=== PATIENT | male | born 1955 | race Caucasian/White ===

== ENCOUNTER → 2016-10-04 | Outpatient (CLI) | payer BC ==
[~2016-10-04] MED LIST: ALEVE220 MG PO; ANORO ELLIPTA1 EACH IH; ASPIR-TRIN325 M1 PO; COUMADIN2 MG PO; DURAGESIC25 MCG TD; Flonase BOTH NARES; GLUCOPHAGE1000 MG PO; GLUCOPHAGE500 MG PO; GLYBURID-METFO1 EAC1 PO; GLYBURIDE1.25 MG PO; Glucosamine/Chondroi PO; HYDROCHLOROTHIA25 MG PO; Hydrodiuril,Oretic,E PO; LOTREL 10/21 CAPSULE PO; LOVENOX150 MG/1 M SC; NASACORT10.8 ML BOTH NARES; ROXICODONE5 MG PO; TOPROL XL100 MG PO; WYGESIC,DARV1 TABLET PO; ZYRTEC10 M3 PO; Zocor PO
== END | disposition home or self-care (01) ==
LOC: NUC 10:44
DX: C80.1 Malignant (primary) neoplasm, unspecified (principal); C79.9 Secondary malignant neoplasm of unspecified site
CPT/HCPCS: 78306; A9503

== ENCOUNTER → 2016-10-13 | Outpatient (CLI) | payer BC ==
[2016-10-13 09:53] LABS: INTER. NORMALIZED RATIO 1.2; PROTHROMBIN TIME 12.3 (9.2-11.2); PTT 33.4 (25-32)
== END | disposition home or self-care (01) ==
LOC: OPR 08:50 → EDSTATUS 09:00
PROVIDERS: Internal Medicine Hematology & Oncology
PROC: 0FB03ZX Excision of Liver, Percutaneous Approach, Diagnostic (ICD-10-PCS; principal; 2016-10-13)
DX: C78.7 Secondary malignant neoplasm of liver and intrahepatic bile duct (principal); C18.9 Malignant neoplasm of colon, unspecified
CPT/HCPCS: 77012; 85610; 85730; 88307; 88341 TC; 88342 TC; J3010

== ENCOUNTER 2016-11-13 09:32 | Inpatient (IN) | payer BC ==
[~2016-11-13] VITALS: Ht 185.4 cm; Wt 107.0 kg
[~2016-11-13 09:32] MED LIST changes: +ATIVAN0.5 MG PO; +COMPAZINE10 MG PO; +LIPITOR40 MG PO; +OMEPRAZOLE40 M1 PO; +ZOFRAN8 MG PO
[2016-11-13 10:00] LABS: HEMATOCRIT 34.7 % (38.0-50.0); MCH 27.5 PG (29.0-34.0); MCHC 33.4 G/DL (30.0-36.0); MCV 82.2 FL (86-99); RBC DIS.WIDTH-CV 18.3 % (11.8-14.6); RBC DIS.WIDTH-SD 52.6 % (39-53); RED BLOOD COUNT 4.22 M/uL (4.00-5.50); WHITE BLOOD COUNT 3.8 K/uL (4.1-10.2)
[2016-11-13 10:03] LABS: BASOPHIL COUNT 0.1 K/uL (0-0.1); EOSINOPHIL (%) 0.8 % (0-5); IMMATURE GRANULOCYTE (%) 1.3 % (0.0-0.7); IMMATURE GRANULOCYTE COUNT 0.5 K/uL; LYMPHOCYTE COUNT 1.3 K/uL (1.0-2.8); MONOCYTE (%) 26.2 % (3-12); NEUTROPHIL COUNT 1.3 K/uL (1.8-6.4)
[2016-11-13 10:11] LABS: INTER. NORMALIZED RATIO 1.5; PROTHROMBIN TIME 15.4 (9.2-11.2); PTT 43.4 (25-32)
[2016-11-13 10:18] LABS: CHLORIDE 107 mEq/L (99-109); POTASSIUM 3.9 mEq/L (3.7-5.4); SODIUM 138 mEq/L (136-147)
[2016-11-13 10:20] LABS: GLUCOSE 203 mg/dL (70-99)
[2016-11-13 10:21] LABS: ANION GAP 18 MEQ/L (2-14)
[2016-11-13 10:23] LABS: TROP-I INTERPRETATION NEGATIVE; TROPONIN-I < 0.01 ng/mL (0.0-0.30)
[2016-11-13 10:23] LABS: GFR ESTIMATE (CALCULATED) 54 mL/min/
[2016-11-13 10:24] LABS: UREA NITROGEN (BUN) 26 mg/dL (9-23)
[2016-11-13 11:01] LABS: ABS NEUTROPHIL COUNT 1.32; ANISOCYTOSIS 1+; MACROCYTES OCC; MEAN PLAT.VOLUME 11.4 uM^3 (9.0-12.4); MICROCYTOSIS OCC; PLAT.SUFFICIENCY ADEQUATE
[2016-11-13 11:08] LABS: PLATELET COUNT UNABLE TO REPORT K/uL (156-360)
[2016-11-13 11:13] LABS: BASE EXCESS -10.4 mEq/L (-3 to +3); BICARBONATE 14.4 mEq/L (22-26); CARBOXY HGB 4.1 % (0-5); METHEMOGLOBIN 1.2 % (0-1.5); PCO2 28 mm Hg (35-45); PO2 66 mm Hg (80-100); pH 7.32 (7.35-7.45)
[2016-11-13 11:14] LABS: COMMENTS - BLOOD GASES A+C+; DEVICE NC; O2 FLOW 5 L/MIN; SITE RR; TOTAL RESP RATE 23 resp/min
[2016-11-13] MEDS ORDERED: MULTAQ400 MG PO (12:05)
[2016-11-13] MEDS ORDERED: GLUCOSAMINE-CH1 EA15 PO (12:06)
[2016-11-13] MEDS ORDERED: XYLOCAINE VISC100 ML MM (12:07)
[2016-11-13 17:08] LABS: POINT-OF-CARE METER ID UU14100415
[2016-11-13 17:25] VITALS: BP 117/57
[2016-11-13 18:30] VITALS: BP 111/92
[2016-11-13 19:50] VITALS: BP 111/92
[2016-11-13 20:32] LABS: ANION GAP 15 MEQ/L (2-14); CHLORIDE 109 MEQ/L (99-109); GFR ESTIMATE (CALCULATED) > 59 mL/min/; GLUCOSE 178 mg/dL (70-99); POTASSIUM 3.7 MEQ/L (3.7-5.4); SAMPLE HEMOLYSIS CHECK 0; SAMPLE ICTERIC CHECK 0; SAMPLE LIPEMIA CHECK 0; SODIUM 137 MEQ/L (136-147); UREA NITROGEN (BUN) 23 mg/dL (9-23)
[2016-11-14] VITALS (17 sets, daily range): BP systolic 76–139; BP diastolic 37–70
[2016-11-14 00:09] LABS: POINT-OF-CARE METER ID UU14188577
[2016-11-14 06:43] LABS: POINT-OF-CARE METER ID UU14149397
[2016-11-14 08:43] LABS: ALKALINE PHOSPHATASE 368 IU/L (3-129); ANION GAP 12 MEQ/L (2-14); CHLORIDE 111 MEQ/L (99-109); GFR ESTIMATE (CALCULATED) > 59 mL/min/; GLUCOSE 135 mg/dL (70-99); POTASSIUM 3.6 MEQ/L (3.7-5.4); SAMPLE HEMOLYSIS CHECK 0; SAMPLE ICTERIC CHECK 0; SAMPLE LIPEMIA CHECK 0; SODIUM 139 MEQ/L (136-147); UREA NITROGEN (BUN) 19 mg/dL (9-23)
[2016-11-14 08:56] LABS: BASOPHIL COUNT 0.1 K/uL (0-0.1); IMMATURE GRANULOCYTE (%) 2.7 % (0.0-0.7); IMMATURE GRANULOCYTE COUNT 0.1 K/uL; LYMPHOCYTE COUNT 0.5 K/uL (1.0-2.8); MONOCYTE (%) 31.4 % (3-12); MONOCYTE COUNT 0.9 K/uL (0-0.8); NEUTROPHIL (%) 45.1 % (45-76); NEUTROPHIL COUNT 1.4 K/uL (1.8-6.4)
[2016-11-14 09:11] LABS: HEMATOCRIT 31.3 % (38.0-50.0); MCH 25.9 PG (29.0-34.0); MCHC 31.6 G/DL (30.0-36.0); MCV 81.9 FL (86-99); RBC DIS.WIDTH-CV 18.2 % (11.8-14.6); RBC DIS.WIDTH-SD 53.6 % (39-53); RED BLOOD COUNT 3.82 M/uL (4.00-5.50); USER ID BLP
[2016-11-14 14:17] LABS: CARBOXY HGB 1.5 % (0-5); COMMENTS - BLOOD GASES A+C+; DEVICE NRBM; METHEMOGLOBIN 1.4 % (0-1.5); O2 FLOW 15 L/MIN; PCO2 88 mm Hg (35-45); PO2 152 mm Hg (80-100); SITE RR; pH < 6.91 (7.35-7.45)
[2016-11-14 15:27] LABS: ANION GAP 12 MEQ/L (2-14); CHLORIDE 112 MEQ/L (99-109); HEMATOCRIT 30.1 % (38.0-50.0); MAGNESIUM 2.1 mg/dl (1.3-2.7); MCH 26.1 PG (29.0-34.0); MCHC 30.9 G/DL (30.0-36.0); MCV 84.3 FL (86-99); POTASSIUM 4.1 MEQ/L (3.7-5.4); RBC DIS.WIDTH-CV 18.6 % (11.8-14.6); RBC DIS.WIDTH-SD 57.2 % (39-53); RED BLOOD COUNT 3.57 M/uL (4.00-5.50); SAMPLE HEMOLYSIS CHECK 0; SAMPLE ICTERIC CHECK 0; SAMPLE LIPEMIA CHECK 0; SODIUM 142 MEQ/L (136-147); WHITE BLOOD COUNT 5.8 K/uL (4.1-10.2)
[2016-11-14 15:28] LABS: DELETE MACHINE DIFF? YES
[2016-11-14 15:32] LABS: ALKALINE PHOSPHATASE 351 IU/L (3-129); GFR ESTIMATE (CALCULATED) > 59 mL/min/; GLUCOSE 148 mg/dL (70-99); INTER. NORMALIZED RATIO 1.6; PROTHROMBIN TIME 16.8 (9.2-11.2); PTT 43.9 (25-32); UREA NITROGEN (BUN) 20 mg/dL (9-23)
[2016-11-14 15:35] LABS: METH RESISTANT S AUREUS PCR NEGATIVE (NEGATIVE)
[2016-11-14 15:36] LABS: TROP-I INTERPRETATION NEGATIVE; TROPONIN-I 0.06 ng/mL (0.0-0.30)
[2016-11-14 15:36] LABS: PROBE CHECK PASS; SPECIMEN PROCESSING CONTROL PASS
[2016-11-14 15:45] LABS: BASE EXCESS -11.9 mEq/L (-3 to +3); BICARBONATE 16.4 mEq/L (22-26); CARBOXY HGB 1.3 % (0-5); METHEMOGLOBIN 1.7 % (0-1.5); PO2 142 mm Hg (80-100)
[2016-11-14 15:46] LABS: DEVICE VENT; FI02 80 %; MECHANICAL RATE 16 resp/min; MODE AC; PCO2 47 mm Hg (35-45); PEEP 5 CM/H20; SITE RR; TIDAL VOLUME 500 ML; TOTAL RESP RATE 23 resp/min
[2016-11-14 15:47] LABS: pH 7.15 (7.35-7.45)
[2016-11-14 16:53] LABS: HEMATOLOGY COMMENT 1 SMEAR COMPATIBLE; MEAN PLAT.VOLUME 10.6 uM^3 (9.0-12.4); PLAT.SUFFICIENCY ADEQUATE; USER ID SS
[2016-11-14 16:54] LABS: POINT-OF-CARE METER ID UU13113803
[2016-11-14 16:54] LABS: PLATELET COUNT 202 K/uL (156-360)
[2016-11-14 20:45] LABS: INFLUENZA A VIRAL ANTIGEN NEGATIVE; INFLUENZA B VIRAL ANTIGEN NEGATIVE
[2016-11-14 20:58] LABS: BASE EXCESS -7.6 mEq/L (-3 to +3); BICARBONATE 18.2 mEq/L (22-26); CARBOXY HGB 1.3 % (0-5); PCO2 37 mm Hg (35-45); PO2 88 mm Hg (80-100)
[2016-11-14 20:59] LABS: COMMENTS - BLOOD GASES C+; DEVICE VENT; FI02 80 %; MECHANICAL RATE 16 resp/min; MODE AC; PEEP 5 CM/H20; SITE RR; TIDAL VOLUME 500 ML; TOTAL RESP RATE 17 resp/min
[2016-11-14 23:23] LABS: TROP-I INTERPRETATION NEGATIVE; TROPONIN-I 0.08 ng/mL (0.0-0.30)
[2016-11-15] VITALS (26 sets, daily range): BP systolic 75–124; BP diastolic 32–60
[2016-11-15 00:05] LABS: POINT-OF-CARE METER ID UU13113803
[2016-11-15 05:37] LABS: VANCOMYCIN, TROUGH 18.9 MCG/ML (10-20)
[2016-11-15 06:13] LABS: HEMATOCRIT 25.5 % (38.0-50.0); MCH 26.7 PG (29.0-34.0); MCHC 32.2 G/DL (30.0-36.0); MCV 83.1 FL (86-99); PLATELET COUNT 142 K/uL (156-360); RBC DIS.WIDTH-CV 18.5 % (11.8-14.6); RBC DIS.WIDTH-SD 55.9 % (39-53); RED BLOOD COUNT 3.07 M/uL (4.00-5.50); WHITE BLOOD COUNT 4.4 K/uL (4.1-10.2)
[2016-11-15 06:54] LABS: ALKALINE PHOSPHATASE 273 IU/L (3-129); ANION GAP 10 MEQ/L (2-14); CHLORIDE 111 MEQ/L (99-109); GFR ESTIMATE (CALCULATED) 50 mL/min/; GLUCOSE 154 mg/dL (70-99); POTASSIUM 3.8 MEQ/L (3.7-5.4); SAMPLE HEMOLYSIS CHECK 0; SAMPLE ICTERIC CHECK 0; SAMPLE LIPEMIA CHECK 0; SODIUM 140 MEQ/L (136-147); TOTAL BILIRUBIN 1.2 MG/DL (0.0-1.0); UREA NITROGEN (BUN) 26 mg/dL (9-23)
[2016-11-15 10:16] LABS: BASE EXCESS -5.5 mEq/L (-3 to +3); BICARBONATE 18.9 mEq/L (22-26); CARBOXY HGB 1.4 % (0-5); COMMENTS - BLOOD GASES NA C+; DEVICE VENT; FI02 70 %; MECHANICAL RATE 14 resp/min; METHEMOGLOBIN 1.5 % (0-1.5); MODE PC; PCO2 32 mm Hg (35-45); PO2 74 mm Hg (80-100); SITE RR; TOTAL RESP RATE 21 resp/min; pH 7.38 (7.35-7.45)
[2016-11-15 10:17] LABS: INSPIRATORY/EXPIRATORY RATIO 0.8 RATIO; PEEP 10 CM/H20; PRESSURE CONTROL VENTILATION 10 CM H20
[2016-11-15 12:56] LABS: POINT-OF-CARE METER ID UU14174217
[2016-11-15 18:21] LABS: POINT-OF-CARE METER ID UU13113803
[2016-11-15 23:41] LABS: POINT-OF-CARE METER ID UU13113803
[2016-11-16] VITALS (24 sets, daily range): BP systolic 92–146; BP diastolic 43–71
[2016-11-16 03:31] LABS: CHLORIDE 112 mEq/L (99-109); MAGNESIUM 1.9 mg/dL (1.3-2.7); POTASSIUM 3.8 mEq/L (3.7-5.4); SODIUM 141 mEq/L (136-147)
[2016-11-16 03:33] LABS: GLUCOSE 154 mg/dL (70-99)
[2016-11-16 03:34] LABS: ANION GAP 12 MEQ/L (2-14)
[2016-11-16 03:36] LABS: GFR ESTIMATE (CALCULATED) 38 mL/min/
[2016-11-16 03:37] LABS: UREA NITROGEN (BUN) 32 mg/dL (9-23)
[2016-11-16 05:04] LABS: POINT-OF-CARE METER ID UU14162636
[2016-11-16 06:50] LABS: ANISOCYTOSIS 1+; HEMATOCRIT 25.7 % (38.0-50.0); MACROCYTES 1+; MCH 27.2 PG (29.0-34.0); MCHC 33.1 G/DL (30.0-36.0); MCV 82.4 FL (86-99); PLAT.SUFFICIENCY ADEQUATE; PLATELET COUNT 173 K/uL (156-360); POLYCHROMASIA OCC; RBC DIS.WIDTH-CV 18.6 % (11.8-14.6); RBC DIS.WIDTH-SD 54.8 % (39-53); RED BLOOD COUNT 3.12 M/uL (4.00-5.50); SMUDGE CELLS 0; USER ID STC
[2016-11-16 06:51] LABS: WHITE BLOOD COUNT 8.3 K/uL (4.1-10.2)
[2016-11-16 06:52] LABS: DELETE MACHINE DIFF? YES
[2016-11-16 12:00] LABS: POINT-OF-CARE METER ID UU13113731
[2016-11-16 16:07] LABS: POINT-OF-CARE METER ID UU14162636
[2016-11-16 23:40] LABS: POINT-OF-CARE METER ID UU14162636
[2016-11-17] VITALS (25 sets, daily range): BP systolic 97–155; BP diastolic 48–72
[2016-11-17 05:33] LABS: POINT-OF-CARE METER ID UU13113803
[2016-11-17 05:52] LABS: ANION GAP 15 MEQ/L (2-14); CHLORIDE 106 MEQ/L (99-109); GFR ESTIMATE (CALCULATED) 32 mL/min/; GLUCOSE 224 mg/dL (70-99); SAMPLE HEMOLYSIS CHECK 1; SAMPLE ICTERIC CHECK 0; SAMPLE LIPEMIA CHECK 1; SODIUM 138 MEQ/L (136-147); UREA NITROGEN (BUN) 42 mg/dL (9-23)
[2016-11-17 05:53] LABS: MAGNESIUM 2.6 mg/dl (1.3-2.7); POTASSIUM 3.9 MEQ/L (3.7-5.4)
[2016-11-17 06:57] LABS: ABS NEUTROPHIL COUNT 10.72; ANISOCYTOSIS 1+; BURR CELLS 1+; EOSINOPHIL (%) 0.1 % (0-5); HEMATOCRIT 28.6 % (38.0-50.0); IMMATURE GRANULOCYTE (%) 7.4 % (0.0-0.7); LYMPHOCYTE COUNT 1.1 K/uL (1.0-2.8); MACROCYTES 1+; MCHC 31.5 G/DL (30.0-36.0); MCV 82.7 FL (86-99); MONOCYTE (%) 10.8 % (3-12); MONOCYTE COUNT 1.4 K/uL (0-0.8); NEUTROPHIL (%) 73.1 % (45-76); NEUTROPHIL COUNT 9.6 K/uL (1.8-6.4); PLAT.SUFFICIENCY ADEQUATE; PLATELET COUNT UNABLE TO REPORT K/uL (156-360); RBC DIS.WIDTH-CV 18.8 % (11.8-14.6); RBC DIS.WIDTH-SD 55.6 % (39-53); RED BLOOD COUNT 3.46 M/uL (4.00-5.50); WHITE BLOOD COUNT 13.1 K/uL (4.1-10.2)
[2016-11-17 12:01] LABS: POINT-OF-CARE METER ID UU13113731
[2016-11-17 17:50] LABS: POINT-OF-CARE METER ID UU13113731
[2016-11-18] VITALS (24 sets, daily range): BP systolic 94–155; BP diastolic 43–75
[2016-11-18 05:19] LABS: POINT-OF-CARE METER ID UU13113748
[2016-11-18 06:10] LABS: ANION GAP 16 MEQ/L (2-14); CHLORIDE 106 MEQ/L (99-109); GFR ESTIMATE (CALCULATED) 32 mL/min/; GLUCOSE 221 mg/dL (70-99); MAGNESIUM 2.4 mg/dl (1.3-2.7); POTASSIUM 3.6 MEQ/L (3.7-5.4); SAMPLE HEMOLYSIS CHECK 0; SAMPLE ICTERIC CHECK 0; SAMPLE LIPEMIA CHECK 1; SODIUM 140 MEQ/L (136-147); UREA NITROGEN (BUN) 50 mg/dL (9-23)
[2016-11-18 06:26] LABS: HEMATOCRIT 28.5 % (38.0-50.0); MCH 26.1 PG (29.0-34.0); MCHC 31.9 G/DL (30.0-36.0); MCV 81.9 FL (86-99); RBC DIS.WIDTH-CV 18.8 % (11.8-14.6); RED BLOOD COUNT 3.48 M/uL (4.00-5.50)
[2016-11-18 06:37] LABS: WHITE BLOOD COUNT 17.8 K/uL (4.1-10.2)
[2016-11-18 07:17] LABS: ABS NEUTROPHIL COUNT 15.85; ANISOCYTOSIS 1+; BURR CELLS 1+; MACROCYTES OCC; MEAN PLAT.VOLUME 11.3 uM^3 (9.0-12.4); NRBC (%) 2.3 /100 WBC (0-0); PLAT.SUFFICIENCY ADEQUATE; PLATELET CLUMPS PRESENT; POLYCHROMASIA RARE; USER ID STC
[2016-11-18 07:29] LABS: DELETE MACHINE DIFF? YES
[2016-11-18 12:58] LABS: POINT-OF-CARE METER ID UU14174217
[2016-11-18 17:49] LABS: POINT-OF-CARE METER ID UU13113748
[2016-11-19] VITALS (19 sets, daily range): BP systolic 95–160; BP diastolic 40–80
[2016-11-19 00:22] LABS: POINT-OF-CARE METER ID UU14162636
[2016-11-19 01:41] LABS: C DIFF TOXIN NEGATIVE (NEGATIVE)
[2016-11-19 01:44] LABS: PROBE CHECK PASS; SPECIMEN PROCESSING CONTROL PASS
[2016-11-19 05:56] LABS: MEAN PLAT.VOLUME 11.4 uM^3 (9.0-12.4)
[2016-11-19 06:18] LABS: ANION GAP 16 MEQ/L (2-14); CHLORIDE 104 MEQ/L (99-109); GFR ESTIMATE (CALCULATED) 32 mL/min/; GLUCOSE 201 mg/dL (70-99); MAGNESIUM 2.3 mg/dl (1.3-2.7); POTASSIUM 3.2 MEQ/L (3.7-5.4); SAMPLE HEMOLYSIS CHECK 0; SAMPLE ICTERIC CHECK 0; SAMPLE LIPEMIA CHECK 1; SODIUM 142 MEQ/L (136-147); UREA NITROGEN (BUN) 55 mg/dL (9-23)
[2016-11-19 06:26] LABS: POINT-OF-CARE METER ID UU13113803
[2016-11-19 06:50] LABS: HEMATOCRIT 28.2 % (38.0-50.0); MCH 27.8 PG (29.0-34.0); MCHC 33.3 G/DL (30.0-36.0); MCV 83.4 FL (86-99); RBC DIS.WIDTH-CV 19.3 % (11.8-14.6); RED BLOOD COUNT 3.38 M/uL (4.00-5.50)
[2016-11-19 06:52] LABS: PLATELET COUNT 194 K/uL (156-360)
[2016-11-19 07:22] LABS: ABS NEUTROPHIL COUNT 17.96; ANISOCYTOSIS 1+; BURR CELLS OCC; EOSINOPHIL (%) 0.6 % (0-5); EOSINOPHIL COUNT 0.1 K/uL (0-0.3); IMMATURE GRANULOCYTE (%) 3.5 % (0.0-0.7); IMMATURE GRANULOCYTE COUNT 0.7 K/uL; LYMPHOCYTE COUNT 1.7 K/uL (1.0-2.8); MACROCYTES OCC; MONOCYTE COUNT 1.6 K/uL (0-0.8); NEUTROPHIL (%) 79.2 % (45-76); NEUTROPHIL COUNT 15.8 K/uL (1.8-6.4); PLAT.SUFFICIENCY ADEQUATE; POLYCHROMASIA OCC; SPHEROCYTES OCC; USER ID MCB
[2016-11-19 09:34] LABS: BASE EXCESS -1.7 mEq/L (-3 to +3); CARBOXY HGB 1.6 % (0-5); METHEMOGLOBIN 1.4 % (0-1.5); PO2 78 mm Hg (80-100); pH 7.39 (7.35-7.45)
[2016-11-19 09:35] LABS: COMMENTS - BLOOD GASES NA C+; DEVICE VENT; FI02 80 %; INSPIRATION TIME 0.8 seconds; MECHANICAL RATE 14 resp/min; MODE AC/PC; PCO2 38 mm Hg (35-45); PEEP 12.5 CM/H20; PRESSURE CONTROL VENTILATION 15 CM H20; SITE RR; TOTAL RESP RATE 22 resp/min
[2016-11-19 11:28] LABS: POINT-OF-CARE METER ID UU13113803
[2016-11-19 17:32] LABS: POINT-OF-CARE METER ID UU14162636
[2016-11-20] VITALS (22 sets, daily range): BP systolic 90–149; BP diastolic 47–74
[2016-11-20 00:13] LABS: POINT-OF-CARE METER ID UU14162636
[2016-11-20 02:14] LABS: BASE EXCESS -1.6 mEq/L (-3 to +3); BICARBONATE 22.8 mEq/L (22-26); CARBOXY HGB 1.9 % (0-5); COMMENTS - BLOOD GASES C+; DEVICE 840; FI02 100 %; INSPIRATION TIME 0.8 seconds; MECHANICAL RATE 14 resp/min; METHEMOGLOBIN 2.1 % (0-1.5); MODE AC/PC; PCO2 36 mm Hg (35-45); PEEP 12.5 CM/H20; PO2 59 mm Hg (80-100); PRESSURE CONTROL VENTILATION 15 CM H20; SITE RR; TOTAL RESP RATE 27 resp/min; pH 7.41 (7.35-7.45)
[2016-11-20 02:33] LABS: HEMATOCRIT 28.3 % (38.0-50.0); MCH 27.2 PG (29.0-34.0); MCHC 32.2 G/DL (30.0-36.0); MCV 84.5 FL (86-99); MEAN PLAT.VOLUME 11.1 uM^3 (9.0-12.4); PLATELET COUNT 165 K/uL (156-360); RBC DIS.WIDTH-CV 19.8 % (11.8-14.6); RBC DIS.WIDTH-SD 53.1 % (39-53); RED BLOOD COUNT 3.35 M/uL (4.00-5.50); WHITE BLOOD COUNT 23.2 K/uL (4.1-10.2)
[2016-11-20 02:43] LABS: CHLORIDE 111 mEq/L (99-109); POTASSIUM 3.6 mEq/L (3.7-5.4); SODIUM 147 mEq/L (136-147)
[2016-11-20 02:45] LABS: GLUCOSE 205 mg/dL (70-99)
[2016-11-20 02:47] LABS: ANION GAP 18 MEQ/L (2-14)
[2016-11-20 02:49] LABS: GFR ESTIMATE (CALCULATED) 32 mL/min/
[2016-11-20 02:50] LABS: UREA NITROGEN (BUN) 57 mg/dL (9-23)
[2016-11-20 03:30] LABS: EOSINOPHIL (%) 0.7 % (0-5); EOSINOPHIL COUNT 0.2 K/uL (0-0.3); HEMATOLOGY COMMENT 1 SMEAR COMPATIBLE; IMMATURE GRANULOCYTE (%) 2.2 % (0.0-0.7); IMMATURE GRANULOCYTE COUNT 0.5 K/uL; LYMPHOCYTE COUNT 1.2 K/uL (1.0-2.8); MONOCYTE COUNT 1.7 K/uL (0-0.8); NEUTROPHIL (%) 83.4 % (45-76); NRBC (%) 1.8 /100 WBC (0-0); PLAT.SUFFICIENCY ADEQUATE
[2016-11-20 03:50] LABS: TOTAL BILIRUBIN 0.9 mg/dL (0.0-1.0)
[2016-11-20 03:51] LABS: ALKALINE PHOSPHATASE 416 IU/L (3-129)
[2016-11-20 03:53] LABS: DIRECT BILIRUBIN 0.6 mg/dL (0.0-0.3)
[2016-11-20 06:19] LABS: POINT-OF-CARE METER ID UU13113803
[2016-11-20 12:54] LABS: ANION GAP 14 MEQ/L (2-14); CHLORIDE 109 MEQ/L (99-109); GFR ESTIMATE (CALCULATED) 34 mL/min/; GLUCOSE 243 mg/dL (70-99); SAMPLE HEMOLYSIS CHECK 0; SAMPLE ICTERIC CHECK 0; SAMPLE LIPEMIA CHECK 1; SODIUM 146 MEQ/L (136-147); UREA NITROGEN (BUN) 59 mg/dL (9-23)
[2016-11-20 12:55] LABS: POTASSIUM 4.6 MEQ/L (3.7-5.4)
[2016-11-20 17:12] LABS: POINT-OF-CARE METER ID UU14174217
[2016-11-21] VITALS (15 sets, daily range): BP systolic 96–150; BP diastolic 48–75
[2016-11-21 00:34] LABS: POINT-OF-CARE METER ID UU14174217
[2016-11-21 04:42] LABS: HEMATOCRIT 27.1 % (38.0-50.0); MCH 27.7 PG (29.0-34.0); MCHC 31.7 G/DL (30.0-36.0); MCV 87.1 FL (86-99); MEAN PLAT.VOLUME 12.2 uM^3 (9.0-12.4); PLATELET COUNT 159 K/uL (156-360); RBC DIS.WIDTH-CV 20.7 % (11.8-14.6); RBC DIS.WIDTH-SD 55.4 % (39-53); RED BLOOD COUNT 3.11 M/uL (4.00-5.50); WHITE BLOOD COUNT 22.1 K/uL (4.1-10.2)
[2016-11-21 04:50] LABS: CHLORIDE 110 mEq/L (99-109); POTASSIUM 5.2 mEq/L (3.7-5.4); SODIUM 147 mEq/L (136-147)
[2016-11-21 04:51] LABS: MAGNESIUM 2.2 mg/dL (1.3-2.7)
[2016-11-21 04:54] LABS: ANION GAP 14 MEQ/L (2-14)
[2016-11-21 04:56] LABS: GFR ESTIMATE (CALCULATED) 31 mL/min/
[2016-11-21 04:57] LABS: UREA NITROGEN (BUN) 68 mg/dL (9-23)
[2016-11-21 04:58] LABS: GLUCOSE 377 mg/dL (70-99)
[2016-11-21 05:42] LABS: ANISOCYTOSIS 2+; HEMATOLOGY COMMENT 1 REV; MACROCYTES 1+; MICROCYTOSIS 1+; OVALOCYTES FEW; PLAT.SUFFICIENCY ADEQUATE; SPHEROCYTES FEW
[2016-11-21 05:43] LABS: EOSINOPHIL (%) 0 % (0-5); IMMATURE GRANULOCYTE COUNT 2.1 K/uL; MONOCYTE (%) 2.6 % (3-12); MONOCYTE COUNT 0.6 K/uL (0-0.8); NEUTROPHIL (%) 91.6 % (45-76); NEUTROPHIL COUNT 20.2 K/uL (1.8-6.4)
[2016-11-21 08:48] LABS: BICARBONATE 24.3 mEq/L (22-26); CARBOXY HGB 1.6 % (0-5); COMMENTS - BLOOD GASES +C; DEVICE PB840; FI02 60 %; MECHANICAL RATE 25 resp/min; METHEMOGLOBIN 1.9 % (0-1.5); MODE ACPC; PCO2 42 mm Hg (35-45); PO2 92 mm Hg (80-100); SITE RR +A; TOTAL RESP RATE 25 resp/min; pH 7.37 (7.35-7.45)
[2016-11-21 08:49] LABS: PEEP 18 CM/H20; PRESSURE CONTROL VENTILATION 12 CM H20
[2016-11-21 12:18] LABS: POINT-OF-CARE METER ID UU13113803
[2016-11-22 06:36] LABS: MEAN PLAT.VOLUME 11.8 uM^3 (9.0-12.4); PLATELET COUNT 179 K/uL (156-360)
[2016-11-22 07:53] LABS: ANISOCYTOSIS 2+; BAND NEUTROPHILS 1.5 % (0-8.0); DELETE MACHINE DIFF? YES; HEMATOCRIT 26.7 % (38.0-50.0); LYMPHOCYTES 6.5 % (15.0-45.0); MACROCYTES 1+; MCH 26.9 PG (29.0-34.0); MCHC 30.7 G/DL (30.0-36.0); MCV 87.5 FL (86-99); PLAT.SUFFICIENCY ADEQUATE; RBC DIS.WIDTH-CV 21.5 % (11.8-14.6); RBC DIS.WIDTH-SD 57.7 % (39-53); RED BLOOD COUNT 3.05 M/uL (4.00-5.50); SPHEROCYTES RARE; TARGET CELLS RARE; TEAR DROP CELLS RARE
[2016-11-22 07:56] LABS: WHITE BLOOD COUNT 30.3 K/uL (4.1-10.2)
[2016-11-23 06:17] VITALS: BP 00/00
== END 2016-11-24 00:54 | DRG 870 ==
LOC: EME 09:32 → EDOF 11:54 → 3EAST 11:54 → 4WEST 11:54 → EDOF 12:14 → 3EAST 17:19 → 4WEST 11-14 14:07 → 5EAST 11-21 21:51
PROVIDERS: Emergency Medicine; Internal Medicine; Internal Medicine Critical Care Medicine; Internal Medicine Hematology & Oncology; Internal Medicine Nephrology; Obstetrics & Gynecology; Specialist
PROC: 5A1955Z Respiratory Ventilation, Greater than 96 Consecutive Hours (ICD-10-PCS; principal; 2016-11-14)
PROC: 0BH17EZ Insertion of Endotracheal Airway into Trachea, Via Natural or Artificial Opening (ICD-10-PCS; principal; 2016-11-14)
DX: A41.9 Sepsis, unspecified organism (principal); J18.9 Pneumonia, unspecified organism; J96.01 Acute respiratory failure with hypoxia; N17.9 Acute kidney failure, unspecified; I26.99 Other pulmonary embolism without acute cor pulmonale; J44.9 Chronic obstructive pulmonary disease, unspecified; E87.2 Acidosis; D70.9 Neutropenia, unspecified; R04.2 Hemoptysis; C34.90 Malignant neoplasm of unspecified part of unspecified bronchus or lung; I27.2 Other secondary pulmonary hypertension; E11.22 Type 2 diabetes mellitus with diabetic chronic kidney disease; N18.3 Chronic kidney disease, stage 3 (moderate); D64.9 Anemia, unspecified; I48.0 Paroxysmal atrial fibrillation; E83.51 Hypocalcemia; I50.9 Heart failure, unspecified; I12.9 Hypertensive chronic kidney disease with stage 1 through stage 4 chronic kidney disease, or unspecified chronic kidney disease; Z51.5 Encounter for palliative care; E78.5 Hyperlipidemia, unspecified; F17.210 Nicotine dependence, cigarettes, uncomplicated; K21.9 Gastro-esophageal reflux disease without esophagitis; Z66 Do not resuscitate; Z79.4 Long term (current) use of insulin; Z90.5 Acquired absence of kidney
CPT/HCPCS: 36600; 71010; 74000; 74176; 76536; 78582; 80048; 80048 91; 80053; 80076; 80202; 82565; 82803; 82948; 83605; 83735; 83880; 84100; 84484; 85025; 85025 91; 85027; 85610; 85730; 87040; 87070; 87077; 87086; 87147; 87186; 87205; 87449; 87493; 87502; 87641; 93005; 93306; 93970; 94002; 94003; 94640; 94640 76; 94667; 94668; 94799; 96360; 96361; 99202; 99281; 99285; A9540; A9567; J0456; J0610; J0692; J0696; J1644; J1720; J1815; J1940; J2060; J2270; J2543; J2704; J2920; J3010; J3370; J3475; J7030; J7050; J7070; J7120; J7608; P9045; P9047